=== PATIENT | male | born 1980 | race Caucasian/White ===

== ENCOUNTER 2022-11-21 08:58 | Day surgery (SDC) | payer BC ==
[2022-11-20 10:35] VITALS: BMI 38.0
[2022-11-21] MEDS ORDERED: Heparin 10,000 UNITS/ 10 ML VIAL ONE (09:00)
[2022-11-21] MEDS ORDERED: Heparin 25,000 units/D5W 500 ML ONE (09:00)
[2022-11-21] MEDS ORDERED: Protamine Sulfate 50 MG/5 ML VIAL ONE (09:00)
[2022-11-21] MEDS ORDERED: FENTANYL 50 MCG/ML 1 ML VIAL ONE ×2 (10:00→13:02)
[2022-11-21] MEDS ORDERED: SUGAMMADEX SODIUM 200 MG/2 ML VIAL ONE (10:00)
[2022-11-21] MEDS ORDERED: Midazolam HCl 2 mg/2 ml Vial ONE (10:00)
[2022-11-21] MEDS ORDERED: Rocuronium Bromide 10 MG/ML (10ML VIAL) ONE (10:38)
[2022-11-21] MEDS ORDERED: Dexamethasone 20 MG/5 ML VIAL ONE (10:38)
[2022-11-21] MEDS ORDERED: Lidocaine 1% PF 5 ML VIAL ONE (10:38)
[2022-11-21] MEDS ORDERED: Ondansetron PF 4 MG/2 ML Vial ONE ×2 (10:38)
[2022-11-21] MEDS ORDERED: PHENYLEPHRINE-NS 100 MCG/ML 10 ML SYRINGE ONE (10:38)
[2022-11-21] MEDS ORDERED: PROPOFOL 200 MG/20 ML VIAL ONE (10:38)
[2022-11-21] MEDS ORDERED: Succinylcholine Chloride 100 MG/5 ML SYRINGE FS ONE (10:38)
[2022-11-21] MEDS ORDERED: PROPOFOL 20 ML ONE (13:02)
[2022-11-21] MEDS ORDERED: Promethazine HCl 25 MG/ML VIAL IVPB PRN (14:11)
[2022-11-21] MEDS ORDERED: Ketorolac Tromethamine 30 MG/ML VIAL IVP PRN (14:11)
[2022-11-21] MEDS ORDERED: Meperidine HCl/PF 25 MG/ML VIAL SLOW IVP PRN (14:11)
[2022-11-21] MEDS ORDERED: HYDROcodone/Acetaminophen 5/325 mg Tablet ONE (14:50)
== END 2022-11-21 17:15 | disposition home or self-care (01) ==
LOC: SDC 08:58
PROVIDERS: ATTEND Internal Medicine Cardiovascular Disease
PROC: 02K83ZZ Map Conduction Mechanism, Percutaneous Approach (ICD-10-PCS; principal; 2022-11-21)
PROC: 02583ZZ Destruction of Conduction Mechanism, Percutaneous Approach (ICD-10-PCS; principal; 2022-11-21)
PROC: B246ZZ4 Ultrasonography of Right and Left Heart, Transesophageal (ICD-10-PCS; principal; 2022-11-21)
PROC: 4A0234Z Measurement of Cardiac Electrical Activity, Percutaneous Approach (ICD-10-PCS; principal; 2022-11-21)
PROC: 4A023FZ Measurement of Cardiac Rhythm, Percutaneous Approach (ICD-10-PCS; principal; 2022-11-21)
DX: I48.0 Paroxysmal atrial fibrillation (principal); I48.3 Typical atrial flutter; E78.5 Hyperlipidemia, unspecified; I10 Essential (primary) hypertension; K21.9 Gastro-esophageal reflux disease without esophagitis; Z87.891 Personal history of nicotine dependence; Z79.01 Long term (current) use of anticoagulants; Z79.899 Other long term (current) drug therapy
CPT/HCPCS: 85347; 93005; 93312; 93655; 93656; C1731; C1732; C1759; C1769; C1894; C2630; J1644; J2250; J2704; J2720; J3010